=== PATIENT | female | born 1970 | race Two or more races ===

== ENCOUNTER 2022-09-04 16:40 | Emergency (ER) | payer MEDICAID ==
[~2022-09-04] VITALS: Ht 144.8 cm; Wt 59.6 kg
[2022-09-04] MEDS ORDERED: TETRACAINE HCL 0.5% OPTH(EYE) SOLN 4ML LEFTEYE ONE (18:15)
[2022-09-04] MEDS ORDERED: FLUORESCEIN SOD OPTH TEST STRIP LEFTEYE ONE (18:15)
[2022-09-04 18:34] VITALS: BP 143/72
[2022-09-04] MEDS ORDERED: ERY05OO OP (19:02)
== END 2022-09-04 19:13 | disposition home or self-care (01) ==
LOC: ER 16:51
DX: H10.89 Other conjunctivitis (principal); B96.89 Other specified bacterial agents as the cause of diseases classified elsewhere; J45.909 Unspecified asthma, uncomplicated; Z79.2 Long term (current) use of antibiotics